=== PATIENT | male | born 1960 | race Caucasian/White ===

== ENCOUNTER 2018-04-30 13:08 | Emergency (ER) | payer OTHER ==
[2018-04-30 13:19] VITALS: BP 145/85
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
[2018-04-30] MEDS ORDERED: Ketorolac 30 MG/ML SDV IVPUSH ONE (15:40)
[2018-04-30] MEDS ORDERED: Ketorolac 60 MG/2 ML SDV IM ONE (15:47)
--- NOTE | 2018-04-30 15:56 | CR ---
Chest: Frontal view of the chest was obtained utilizing portable technique. Heart size and mediastinum are within normal limits for portable technique. Lungs are clear. Bony structures are grossly intact. Impression: 1. Nothing acute is seen on portable chest x-ray. Diagnostic code #1
[2018-04-30] MEDS ORDERED: Heparin Sodium 5,000 Units/ML Vial IVPUSH ONE (16:58)
[2018-04-30] MEDS ORDERED: Sodium Chloride 0.9% 10 ML Syringe FLUSH PRN (16:58)
[2018-04-30] MEDS ORDERED: Aspirin 81 MG Tab.Chew ONE (16:58)
[2018-04-30] MEDS ORDERED: Aspirin 81 MG Tab.Chew PO ONE (16:58)
[2018-04-30] MEDS ORDERED: Nitroglycerin 2% Oint 1 GM UD Packet TOP ONE (16:58)
[2018-04-30] MEDS ORDERED: Heparin Sodium/D5W 25,000 UNITS/500 ML BAG IV SCH (17:00)
[2018-04-30] MEDS ORDERED: Rosuvastatin 10 MG Tab PO ONE (17:18)
[2018-04-30] MEDS ORDERED: Metoprolol Tartrate 25 MG Tab PO ONE (17:18)
== END 2018-04-30 17:40 ==
LOC: JD.ED 13:08
DX: I24.9 Acute ischemic heart disease, unspecified (principal)
CPT/HCPCS: 36415; 71045; 80053; 83735; 84484; 85007; 85027; 93005; 96365; 96372; 99285; A9270; J1644; J1885; 93010

== ENCOUNTER 2019-05-21 20:16 | Emergency (ER) | payer OTHER ==
[2019-05-21 20:32] VITALS: BP 143/85; PULSE 80
[2019-05-21] MEDS ORDERED: Alum Hydrox/Mag Hydrox/Simeth 30 ML, Lidocaine 2% 15 ML PO STA ×2 (21:00)
--- NOTE | 2019-05-21 21:06 | EDM.PDOC ---
ED HPI GENERAL MEDICAL PROBLEM - General Chief Complaint: Chest Pain Stated Complaint: ABDOMINAL AND CHEST PRESSURE Time Seen by Provider: 05/21/19 20:44 Source of Information: Reports: Patient History Limitations: Reports: No Limitations - History of Present Illness INITIAL COMMENTS - FREE TEXT/NARRATIVE: Mr. Rowland is a very pleasant 59-year-old man with a past medical history significant for hypertension, dyslipidemia, and known coronary artery disease. On 04/30/2018, he presented to this ED with retrosternal chest pain after shoveling snow. His pain did not radiate. He had dyspnea, but no diaphoresis or nausea. His EKG was unremarkable. His initial troponin was within normal limits at 0.035, and his repeat troponin was still within normal limits, but up to 0.053, therefore there was a concern that the patient was suffering from a non-STEMI. He was started on a heparin drip and transferred to [facility] , where he was found to have a 95% blockage. He received a single coronary stent. He did not suffer an FL. He states that he has never undergone a cardiac stress test. The patient now presents to the ED after developing bilateral arm discomfort on 05/19/2019, after he was jacking a car up in order to tow it. The sensation then migrated to his left chest and left arm yesterday, Saturday, 05/19, then to his abdominal left upper quadrant this morning, where it remains. He states that the sensation is "gripping" in character. He states that it is a discomfort, not a pain. He states that it is made worse if he moves his head around. He states that his current symptoms are distinctly different than the angina that he experienced on 04/30/2018. The patient denies recent fever, chills, cough, dyspnea, palpitations, nausea, vomiting, constipation, diarrhea, abdominal pain, urinary symptoms, recent weight gain or weight loss, recent bloody bowel movements or black bowel movements, recent joint aches, headaches, or rashes. Here in the ED, the patient is found to be hemodynamically stable, afebrile, saturating 98% on room air. The patient's PCP is Dr. Noah Jade. His Jewellery Designer is Dr. Ang Morris. He did not receive an influenza vaccine this season, but agreed to receive one here today. Left Upper Abdomen Pain Score (Numeric/FACES): 3 - Related Data Allergies Allergy/AdvReac Type Severity Reaction Status Date / Time No Known Allergies Allergy Verified 05/21/19 20:32 Home Meds: Home Meds Aspirin 81 mg PO DAILY 05/21/19 [History] Azelastine HCl 2 inh NS DAILY 05/21/19 [History] Clopidogrel [Plavix] 75 mg PO DAILY 05/21/19 [History] Fluticasone Furoate [Arnuity Ellipta] 1 inh IH DAILY 05/21/19 [History] Metoprolol Succinate 25 mg PO DAILY 05/21/19 [History] Multivitamin [Gummi Bear Multivitamin] 1 each PO DAILY 05/21/19 [History] Nitroglycerin 0.4 mg SL ASDIRECTED 05/21/19 [History] atorvaSTATin [Lipitor] 40 mg PO DAILY 05/21/19 [History] Past Medical History Cardiovascular History: Reports: CAD, High Cholesterol, Hypertension Gastrointestinal History: Reports: Fatty Liver Genitourinary History: Reports: Renal Calculus - Past Surgical History HEENT Surgical History: Reports: Naso-Sinus Surgery (nasal polypectomy), Oral Surgery (wisdom teeth extraction) Cardiovascular Surgical History: Reports: Coronary Artery Stent (x 1, 04/30/2018) Social & Family History - Family History Family Medical History: Noncontributory - Tobacco Use Tobacco Use Within Last Twelve Months: Smokeless Tobacco (Chews 1 can/day) Years of Tobacco use: 2 Packs/Tins Daily: 1 Month/Year Tobacco Last Used: Quit 2009 - Caffeine Use Caffeine Use: Reports: Coffee - Alcohol Use Alcohol Use History: Yes Alcohol Use Frequency: Socially - Recreational Drug Use Recreational Drug Use: No - Living Situation & Occupation Living situation: Reports: , with Spouse 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 ED EXAM, GENERAL - Physical Exam Exam: See Below Exam Limited By: No Limitations General Appearance: Alert, WD/WN, No Apparent Distress Eye Exam: Bilateral Eye: EOMI, Normal Inspection Ears: Normal External Exam, Hearing Grossly Normal Nose: Normal Inspection Throat/Mouth: Normal Inspection, Normal Lips, Normal Voice, No Airway Compromise Head: Atraumatic, Normocephalic Neck: Normal Inspection, Full Range of Motion Respiratory/Chest: No Respiratory Distress, Lungs Clear, Normal Breath Sounds, No Accessory Muscle Use, Chest Non-Tender (including the left chest) Cardiovascular: Normal Peripheral Pulses, Regular Rate, Rhythm, No Edema, No Gallop, No JVD, No Murmur, No Rub Peripheral Pulses: 4+: Radial (L), Radial (R) GI/Abdominal: Normal Bowel Sounds, Soft, Non-Tender (including the LUQ), No Organomegaly, No Distention, No Abnormal Bruit, No Mass (Male) Exam: Deferred Rectal (Males) Exam: Deferred Back Exam: Normal Inspection, Full Range of Motion. No: CVA Tenderness (L), CVA Tenderness (R) Extremities: Normal Inspection, Normal Range of Motion, Non-Tender (includign the left shoulder), No Pedal Edema, Normal Capillary Refill Neurological: Alert, Oriented, Normal Cognition, No Motor/Sensory Deficits Psychiatric: Normal Affect Skin Exam: Warm, Dry, Intact, Normal Color, No Rash EKG INTERPRETATION EKG Date: 05/21/19 Time: 20:39 Rhythm: NSR Rate (Beats/Min): 71 [place]: Normal P-Wave: Present QRS: Normal ST-T: Normal QT: Normal Comparison: No Change (04/30/2018) Course - Vital Signs Last Recorded V/S: Last Vital Signs Temp 36.8 C 05/21/19 20:26 Pulse 80 05/21/19 20:26 Resp 16 05/21/19 20:26 BP 143/85 H 05/21/19 20:26 Pulse Ox 98 05/21/19 20:26 - Orders/Labs/Meds Orders: Active Orders 24 hr Category Date Time Status EKG Documentation Completion [RC] STAT Care 05/21/19 20:44 Active Influenza Vaccine Charge [RC] .DISCHARGE Care 05/21/19 21:00 Active Labs: Laboratory Tests 05/21/19 05/21/19 05/21/19 Range/Units 20:50 20:50 20:50 WBC 7.73 (4.23-9.07) K/mm3 RBC 4.71 (4.63-6.08) M/mm3 Hgb 13.4 L (13.7-17.5) gm/dl Hct 41.1 (40.1-51.0) % MCV 87.3 (79.0-92.2) fl MCH 28.5 (25.7-32.2) pg MCHC 32.6 (32.2-35.5) g/dl RDW Std Deviation 41.0 (35.1-43.9) fL Plt Count 294 (163-337) K/mm3 MPV 8.7 L (9.4-12.3) fl Neutrophils % (Manual) 61 H (40-60) % Band Neutrophils % 0 (0-10) % Lymphocytes % (Manual) 33 (20-40) % Atypical Lymphs % 0 % Monocytes % (Manual) 5 (2-10) % Eosinophils % (Manual) 1 (0.8-7.0) % Basophils % (Manual) 0 L (0.2-1.2) Platelet Estimate Adequate RBC Morph Comment Normal PT 10.5 (9.7-12.0) SECONDS INR 0.96 APTT 27 (22-31) SECONDS D-Dimer, Quantitative < 0.19 L (0.19-0.50) mg/L Sodium 141 (136-145) mEq/L Potassium 3.8 (3.5-5.1) mEq/L Chloride 105 (98-107) mEq/L Carbon Dioxide 27 (21-32) mEq/L Anion Gap 12.8 (5-15) BUN 24 H (7-18) mg/dL Creatinine 1.2 (0.7-1.3) mg/dL Est Cr Clr Drug Dosing 60.55 mL/min Estimated GFR (MDRD) > 60 (>60) mL/min BUN/Creatinine Ratio 20.0 H (14-18) Glucose 138 H (74-106) mg/dL Calcium 9.3 (8.5-10.1) mg/dL Total Bilirubin 0.4 (0.2-1.0) mg/dL AST 20 (15-37) U/L ALT 43 (16-63) U/L Alkaline Phosphatase 51 (46-116) U/L Troponin I < 0.017 (0.00-0.056) ng/mL NT-Pro-B Natriuret Pep (0-125) pg/mL Total Protein 7.0 (6.4-8.2) g/dl Albumin 4.1 (3.4-5.0) g/dl Globulin 2.9 gm/dL Albumin/Globulin Ratio 1.4 (1-2) 05/21/19 Range/Units 20:50 WBC (4.23-9.07) K/mm3 RBC (4.63-6.08) M/mm3 Hgb (13.7-17.5) gm/dl Hct (40.1-51.0) % MCV (79.0-92.2) fl MCH (25.7-32.2) pg MCHC (32.2-35.5) g/dl RDW Std Deviation (35.1-43.9) fL Plt Count (163-337) K/mm3 MPV (9.4-12.3) fl Neutrophils % (Manual) (40-60) % Band Neutrophils % (0-10) % Lymphocytes % (Manual) (20-40) % Atypical Lymphs % % Monocytes % (Manual) (2-10) % Eosinophils % (Manual) (0.8-7.0) % Basophils % (Manual) (0.2-1.2) Platelet Estimate RBC Morph Comment PT (9.7-12.0) SECONDS INR APTT (22-31) SECONDS D-Dimer, Quantitative (0.19-0.50) mg/L Sodium (136-145) mEq/L Potassium (3.5-5.1) mEq/L Chloride (98-107) mEq/L Carbon Dioxide (21-32) mEq/L Anion Gap (5-15) BUN (7-18) mg/dL Creatinine (0.7-1.3) mg/dL Est Cr Clr Drug Dosing mL/min Estimated GFR (MDRD) (>60) mL/min BUN/Creatinine Ratio (14-18) Glucose (74-106) mg/dL Calcium (8.5-10.1) mg/dL Total Bilirubin (0.2-1.0) mg/dL AST (15-37) U/L ALT (16-63) U/L Alkaline Phosphatase (46-116) U/L Troponin I (0.00-0.056) ng/mL NT-Pro-B Natriuret Pep 71 (0-125) pg/mL Total Protein (6.4-8.2) g/dl Albumin (3.4-5.0) g/dl Globulin gm/dL Albumin/Globulin Ratio (1-2) Meds: Medications Discontinued Medications Generic Name Dose Route Start Last Admin Trade Name Cecilia PRN Reason Stop Dose Admin Al Hydroxide/Mg Hydroxide 30 0 ml 05/21/19 21:00 05/21/19 21:05 ml/ Lidocaine HCl 15 ml PO 05/21/19 21:01 45 ml ONETIME STA Administration Famotidine 40 mg 05/21/19 21:53 05/21/19 22:10 Pepcid PO 05/21/19 21:54 40 mg ONETIME STA Administration Influenza Virus Vaccine 1 each 05/21/19 21:00 Pharmacy To Dose - Influenza Vaccine IM 05/21/19 21:01 ONETIME ONE Influenza Virus Vaccine 60 mcg 05/21/19 21:15 05/21/19 22:10 Fluzone Quad Syringe IM 05/21/19 21:16 60 mcg .ONCE ONE Administration - Re-Assessments/Exams Free Text/Narrative Re-Assessment/Exam: 05/21/19 21:01 There are certainly some features of the patient's presentation that are concerning for a cardiac etiology, however, other features are not, including that his presentation is quite different than when he was experiencing angina a year ago. His initial ECG is unremarkable. I have ordered blood work, and I have also ordered a GI cocktail, to see if that has any effect. 05/21/19 21:45 Two-view chest radiograph appears to be grossly normal. The cardiac silhouette is within normal limits. No pulmonary vascular congestion. No pleural effusions. No focal infiltrate. No pneumothorax. Formal read per the Radiologist pending. The patient's CBC is remarkable for a Hgb slightly depressed at 13.4 with a Hct normal at 41.1, and the remainder of his CBC being unremarkable. His CMP is remarkable for a BUN slightly elevated at 24 with a Cr normal at 1.2. His blood glucose is mildly elevated 138, with the remainder of his CMP being unremarkable. His troponin is undetectably low. His BNP is within normal limits at 71. His D-dimer is undetectably low. His coags are within normal limits. 05/21/19 21:53 Test results discussed with the patient. As above, tonight's work-up is unremarkable. He has not suffered any cardiac injury. He states that his left upper quadrant abdominal pain improved following a GI cocktail, indicating a gastroenterologic etiology. I will start him on oral famotidine here, and recommend that he start taking [id number] famotidine once or twice a day. Departure - Departure Time of Disposition: 21:56 Disposition: Home, Self-Care 01 Condition: Good Clinical Impression: GERD (gastroesophageal reflux disease) - Discharge Information *PRESCRIPTION DRUG MONITORING PROGRAM REVIEWED*: Not Applicable *COPY OF PRESCRIPTION DRUG MONITORING REPORT IN PATIENT LAVERN: Not Applicable Instructions: Gastroesophageal Reflux Disease, Adult, [id number] Referrals: Noah Jade MD [Primary Care Provider] - Ang Morris DO [Ordering Only Provider] - Forms: ED Department Discharge Additional Instructions: You were seen in the emergency room for pain in both of your arms that developed 2 days ago, then moved to your left chest and left arm, then to your left upper abdomen. Work-up in the ER included blood work, a chest x-ray, and an ECG, all of which were unremarkable. You have not suffered a heart attack. You do not have a blood clot in your lungs. You do not have a collapsed lung. You had improvement in your upper left abdominal pain following a GI cocktail, indicating that your pain may be gastroenterologic in etiology. You have therefore been started on the antacid medicine famotidine (Pepcid). Famotidine is available [id number]. We recommend that you take 1 tablet either once or twice a day. If you continue to have abdominal pain despite 1 tablet of famotidine twice a day, you may need to be switched to a stronger medicine, however, under those conditions, I would recommend that you undergo an EGD ( scope of the stomach). You would need to follow-up with your PCP, Dr. Noah Jade, in that regard. If any other problems, please do not hesitate to return to the ER. Sepsis Event Note - Evaluation Sepsis Screening Result: No Definite Risk - Focused Exam Vital Signs: Vital Signs Temp Pulse Resp BP Pulse Ox 05/21/19 20:26 36.8 C 80 16 143/85 H 98 Date Exam was Performed: 05/22/19 Time Exam was Performed: 01:52 - My Orders Last 24 Hours: My Active Orders 05/21/19 20:44 EKG Documentation Completion [RC] STAT 05/21/19 21:00 Influenza Vaccine Charge [RC] .DISCHARGE - Assessment/Plan Last 24 Hours: My Active Orders 05/21/19 20:44 EKG Documentation Completion [RC] STAT 05/21/19 21:00 Influenza Vaccine Charge [RC] .DISCHARGE
[2019-05-21] MEDS ORDERED: FLU Vacc QS2019-20(6MOS+)/PF 60 MCG/0.5 ML SYRINGE IM ONE (21:15)
--- NOTE | 2019-05-21 21:25 | CR ---
Chest: PA and lateral views of the chest were obtained. Comparison: Prior chest x-ray of 04/30/18. Heart is mildly enlarged. Tortuous thoracic aorta is seen. Lungs are clear with no acute parenchymal change. Minimal deformity to several left lower ribs compatible with old healed fractures. Minimal degenerative change is noted within the spine. Impression: 1. Findings as described above. 2. Nothing acute is appreciated. Diagnostic code #2 Study was dictated in MDT
[2019-05-21] MEDS ORDERED: Famotidine 20 MG Tab PO STA (21:53)
== END 2019-05-21 22:20 | disposition home or self-care (01) ==
LOC: JD.ED 20:16
DX: K21.9 Gastro-esophageal reflux disease without esophagitis (principal); I10 Essential (primary) hypertension; Z79.899 Other long term (current) drug therapy; Z79.82 Long term (current) use of aspirin
CPT/HCPCS: 36415; 71046; 80053; 83880; 84484; 85007; 85027; 85379; 85610; 85730; 90471; 90686; 93005; 99285; A9270; 93010; 99283; G0008

== ENCOUNTER 2019-09-30 19:17 | Emergency (ER) | payer OTHER ==
[2019-09-30] MEDS ORDERED: Ondansetron 4 MG/2 ML SDV IVPUSH ONE (20:13)
[2019-09-30] MEDS ORDERED: Tamsulosin 0.4 MG Cap.ER PO ONE (20:13)
[2019-09-30] MEDS ORDERED: Sodium Chloride 0.9% 1,000 ML IV SCH (20:15)
--- NOTE | 2019-09-30 20:16 | EDM.PDOC ---
ED HPI GENERAL MEDICAL PROBLEM - General Chief Complaint: Flank Pain Stated Complaint: FLANK PAIN Time Seen by Provider: 09/30/19 20:00 Source of Information: Reports: Patient, Family () History Limitations: Reports: No Limitations - History of Present Illness INITIAL COMMENTS - FREE TEXT/NARRATIVE: Mr. Rowland is a very pleasant 59-year-old gentleman with a past medical history significant for passing a kidney stone in 2004, who now presents the ED stating that he developed sudden onset sharp left flank pain that radiated to his left lower quadrant around 18:00 this evening. He states that the pain has been coming and going, and that currently he is asymptomatic, and that he has not identified any modifiers. He did not take any ifni-sql-[id number] or home remedies prior to coming to the ED. He states that prior to the onset of the symptoms, he had "sort of a stomachache" today. When he was experiencing pain, he had some nausea, but no vomiting. He states that his symptoms are similar to when he had the stone in 2004. Here in the ED, the patient's initial BP is found to be elevated at 179/90, otherwise, he is hemodynamically stable, afebrile, saturating 98% on room air. Other than today's left flank and left lower quadrant abdominal pain, and nausea, the patient denies having a recent fever, chills, sore throat, ear pain, nasal or sinus congestion, cough, dyspnea, chest pain, palpitations, vomiting, constipation, diarrhea, urinary symptoms, recent weight gain or weight loss, recent bloody bowel movements or black bowel movements, recent joint aches, headaches, or rashes. The patient's PCP is Dr. Noah Jade. His Commercial Real Estate Attorney is Dr. Ang Morris. Left Flank Pain Score (Numeric/FACES): 9 - Related Data Allergies Allergy/AdvReac Type Severity Reaction Status Date / Time No Known Allergies Allergy Verified 09/30/19 20:01 Home Meds: Home Meds Aspirin 81 mg PO DAILY 05/21/19 [History] Clopidogrel [Plavix] 75 mg PO DAILY 05/21/19 [History] Metoprolol Succinate 25 mg PO DAILY 05/21/19 [History] Nitroglycerin 0.4 mg SL ASDIRECTED 05/21/19 [History] atorvaSTATin [Lipitor] 40 mg PO DAILY 05/21/19 [History] Acetaminophen/HYDROcodone [[place] 325-5 MG] 1 - 2 tab PO Q6H PRN #30 tablet 09/30/19 [Rx] Fluticasone Propionate [Flonase Allergy Relief] 1 spray NS DAILY 09/30/19 [History] Ondansetron [Zofran ODT] 1 tab PO Q6H PRN #10 tab.dis 09/30/19 [Rx] Tamsulosin HCl [Flomax] 1 cap PO QPM PRN #10 cap.er.24h 09/30/19 [Rx] Past Medical History Cardiovascular History: Reports: CAD, High Cholesterol, Hypertension Gastrointestinal History: Reports: Fatty Liver Genitourinary History: Reports: Renal Calculus - Past Surgical History HEENT Surgical History: Reports: Naso-Sinus Surgery (nasal polypectomy), Oral Surgery (wisdom teeth extraction) Cardiovascular Surgical History: Reports: Coronary Artery Stent (x 1, 04/30/2018) Social & Family History - Family History Family Medical History: Noncontributory - Tobacco Use Smoking Status *Q: Former Smoker Tobacco Use Within Last Twelve Months: Smokeless Tobacco (Quit chewing 1 can/day) Years of Tobacco use: 2 Packs/Tins Daily: 2 Month/Year Tobacco Last Used: Quit 2009 - Caffeine Use Caffeine Use: Reports: Coffee, Soda - Alcohol Use Alcohol Use History: Yes Alcohol Use Frequency: Socially - Recreational Drug Use Recreational Drug Use: No - Living Situation & Occupation Living situation: Reports: , with Spouse 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 ED EXAM, RENAL/ - Physical Exam Exam: See Below Exam Limited By: No Limitations General Appearance: Alert, WD/WN, No Apparent Distress Eye Exam: Bilateral Eye: EOMI, Normal Inspection Ears: Normal External Exam, Hearing Grossly Normal Nose: Normal Inspection Throat/Mouth: Normal Inspection, Normal Lips, Normal Voice, No Airway Compromise Head: Atraumatic, Normocephalic Neck: Normal Inspection, Full Range of Motion Respiratory/Chest: No Respiratory Distress, Lungs Clear, Normal Breath Sounds, No Accessory Muscle Use Cardiovascular: Normal Peripheral Pulses, Regular Rate, Rhythm, No Edema, No Gallop, No JVD, No Murmur, No Rub GI/Abdominal: Normal Bowel Sounds, Soft, Non-Tender (including the LLQ), No Organomegaly, No Distention, No Abnormal Bruit, No Mass (Male) Exam: Deferred Rectal (Males) Exam: Deferred Back Exam: Normal Inspection, Full Range of Motion, CVA Tenderness (L) (mild). No: CVA Tenderness (R) Extremities: Normal Inspection, Normal Range of Motion, No Pedal Edema, Normal Capillary Refill Neurological: Alert, Oriented, Normal Cognition, No Motor/Sensory Deficits Psychiatric: Normal Affect Skin Exam: Warm, Dry, Intact, Normal Color, No Rash Course - Vital Signs Last Recorded V/S: Last Vital Signs Temp 36.4 C 09/30/19 19:58 Pulse 92 09/30/19 22:18 Resp 17 09/30/19 22:18 BP 149/87 H 09/30/19 22:18 Pulse Ox 98 09/30/19 22:18 - Orders/Labs/Meds Orders: Active Orders 24 hr Category Date Time Status Strain Urine [RC] ASDIRECTED Care 09/30/19 21:23 Active Abdomen Pelvis wo Cont [CT] Stat Exams 09/30/19 20:12 Taken CORONAVIRUS COVID-19 PCR PHL Routine Lab 09/30/19 21:38 Received Sodium Chloride 0.9% [Normal Saline] 1,000 ml Med 09/30/19 20:15 Active IV ASDIRECTED Medication Orders Sodium Chloride (Normal Saline) 1,000 mls @ 150 mls/hr IV ASDIRECTED BALJEET Last Admin: 09/30/19 20:30 Dose: 150 mls/hr Documented by: JAX Labs: Laboratory Tests 09/30/19 Range/Units 20:27 Urine Color Yellow (Yellow) Urine Appearance Clear (Clear) Urine pH 5.5 (5.0-8.0) Ur Specific [place] > or = 1.030 (1.005-1.030) Urine Protein Negative (Negative) Urine Glucose (UA) Negative (Negative) Urine Ketones Negative (Negative) Urine Occult Blood 3+ H (Negative) Urine Nitrite Negative (Negative) Urine Bilirubin Negative (Negative) Urine Urobilinogen 0.2 (0.2-1.0) Ur Leukocyte Esterase Negative (Negative) Urine RBC 50-75 H (0-5) /hpf Urine WBC 0-5 (0-5) /hpf Ur Squamous Epith Cells 0-5 (0-5) /hpf Urine Bacteria Rare (FEW) /hpf Urine Mucus Few (FEW) /hpf Meds: Medications Generic Name Dose Route Start Last Admin Trade Name Cecilia PRN Reason Stop Dose Admin Sodium Chloride 1,000 mls @ 150 mls/hr 09/30/19 20:15 09/30/19 20:30 Normal Saline IV 150 mls/hr ASDIRECTED BALJEET Administration Discontinued Medications Generic Name Dose Route Start Last Admin Trade Name Cecilia PRN Reason Stop Dose Admin Hydromorphone HCl 0.5 mg 09/30/19 20:23 09/30/19 20:31 Dilaudid IVPUSH 09/30/19 20:24 0.5 mg ONETIME ONE Administration Hydromorphone HCl 0.5 mg 09/30/19 21:22 09/30/19 21:29 Dilaudid IVPUSH 09/30/19 21:23 0.5 mg ONETIME ONE Administration Ketorolac Tromethamine 30 mg 09/30/19 20:24 09/30/19 20:30 Toradol IVPUSH 09/30/19 20:25 30 mg ONETIME STA Administration Ondansetron HCl 4 mg 09/30/19 20:13 09/30/19 20:28 Zofran IVPUSH 09/30/19 20:14 4 mg ONETIME ONE Administration Tamsulosin HCl 0.4 mg 09/30/19 20:13 09/30/19 20:30 Flomax PO 09/30/19 20:14 0.4 mg ONETIME ONE Administration - Re-Assessments/Exams Free Text/Narrative Re-Assessment/Exam: 09/30/19 20:14 As above, the patient developed sudden onset sharp left flank pain that radiated to his left lower quadrant about 2 hours ago. He has had some nausea, but no other associated symptoms, and at present, he is asymptomatic. He has no tenderness to palpation of his abdomen, although he has mild left CVA tenderness. His symptoms are similar to when he had a kidney stone in 2004, and I suspect that that is what is going on again today, although it is also possible that he passed the stone already. For today's purposes, I have ordered a urinalysis and a CT scan of the abdomen and pelvis without contrast. In the meantime, the patient will be given oral Flomax, IV Zofran, and IV fluid. I will order pain medication if his pain returns. 09/30/19 20:26 Notified by Abdiel THOMSON that the patient's pain is returning. I have therefore ordered Dilaudid 0.5 mg IVP and Toradol 30 mg IVP. Also notified that the patient is requesting to be tested for the SARS-CoV-2 virus. I have ordered a state test. 09/30/19 21:24 The patient's urinalysis is remarkable for 3+ occult blood with 50-70 RBCs, and is otherwise unremarkable. 09/30/19 21:26 CT of the abdomen and pelvis without contrast is read by Lorin as: 1. Mid left-sided obstructive uropathy 2. Additional bilateral nephrolithiasis 09/30/19 21:50 Test results discussed with the patient (his is not currently present). As above, the patient has a 2 to 3 mm stone at the left UVJ. He tells me that he is not supposed to take ibuprofen, therefore I will recommend that he take [id number] Tylenol as needed, and I will also prescribe [place], noting that he needs to limit his acetaminophen intake to 4 g/day. I will prescribe Flomax and Zofran. He will be given a urine strainer prior to discharge, and I will refer him to Urology, in the event that he does not pass the stone within about a week. 09/30/19 22:51 Notified that the patient requested 1 or 2 tablets of [place] to go home with. I have written a prescription for 4 tablets of [place] via [employer]. Departure - Departure Time of Disposition: 21:51 Disposition: Home, Self-Care 01 Condition: Good Clinical Impression: Ureterolithiasis - Discharge Information *PRESCRIPTION DRUG MONITORING PROGRAM REVIEWED*: Not Applicable *COPY OF PRESCRIPTION DRUG MONITORING REPORT IN PATIENT [place]AVERN: Not Applicable Prescriptions: Tamsulosin HCl [Flomax] 1 cap PO QPM PRN #10 cap.er.24h PRN Reason: Pain Acetaminophen/HYDROcodone [[place] 325-5 MG] 1 - 2 tab PO Q6H PRN #30 tablet PRN Reason: Pain (Severe 7-10) Ondansetron [Zofran ODT] 1 tab PO Q6H PRN #10 tab.dis PRN Reason: Nausea/Vomiting Instructions: Kidney Stones, [id number] Referrals: Noah Jade MD [Primary Care Provider] - Ang Morris DO [Ordering Only Provider] - Camden Reilly MD [Ordering Only Provider] - Forms: ED Department Discharge Additional Instructions: You were seen in the emergency room after developing sudden onset left flank pain that radiated around to your lower left abdomen. Work-up in the ER included a urinalysis and a CT scan of your abdomen and pelvis without contrast. Your urinalysis showed blood, only, with no sign of an infection. Your CT scan found a 2 to 3 mm stone stuck at the junction between your ureter and bladder. Based on the size and location of the stone, you will almost certainly pass it on your own. Stay adequately hydrated. Strain all of your urine. If you capture the stone, take it to your doctor for analysis. Take 1 tablet of the anti-spasm medicine Flomax every evening, starting tomorrow evening, 10/01/2019, as needed for discomfort. We recommend you take [id number] Tylenol [id number], as needed for discomfort. In addition to Tylenol, you may also take the prescription narcotic [place], 1 to 2 tablets up to every 6 hours, as needed for discomfort not relieved by Tylenol, however, it is very important that you not exceed 4 g of acetaminophen intake per 24 hours. If you take [place], do not drive or operate heavy machinery for 12 hours afterwards. [place] may cause constipation, so consider taking a stool softener. You may dissolve 1 tablet of the anti-nausea medicine Zofran on your tongue up to every 8 hours, as needed for nausea/vomiting. If you are still having flank pain after 1 week, please follow-up with the Urologist Dr. Camden Reilly, in [place]. Be sure that the executive receptionist understands that you are following up from the ER. If any other problems, please do not hesitate to return to the ER. Sepsis Event Note (ED) - Evaluation Sepsis Screening Result: No Definite Risk - Focused Exam Vital Signs: Vital Signs Temp Pulse Resp BP Pulse Ox 09/30/19 22:18 92 17 149/87 H 98 09/30/19 19:58 36.4 C 71 16 179/90 H 98 - My Orders Last 24 Hours: My Active Orders 09/30/19 20:12 Abdomen Pelvis wo Cont [CT] Stat 09/30/19 20:15 Sodium Chloride 0.9% [Normal Saline] 1,000 ml IV ASDIRECTED 09/30/19 21:23 Strain Urine [RC] ASDIRECTED 09/30/19 21:38 CORONAVIRUS COVID-19 PCR PHL Routine - Assessment/Plan Last 24 Hours: My Active Orders 09/30/19 20:12 Abdomen Pelvis wo Cont [CT] Stat 09/30/19 20:15 Sodium Chloride 0.9% [Normal Saline] 1,000 ml IV ASDIRECTED 09/30/19 21:23 Strain Urine [RC] ASDIRECTED 09/30/19 21:38 CORONAVIRUS COVID-19 PCR PHL Routine
[2019-09-30] MEDS ORDERED: HYDROmorphone 0.5 MG/0.5 ML Syringe IVPUSH ONE ×2 (20:23→21:22)
[2019-09-30] MEDS ORDERED: Ketorolac 30 MG/ML SDV IVPUSH STA (20:24)
[2019-09-30 22:24] VITALS: BP 149/87; PULSE 92
--- NOTE | 2019-10-01 08:59 | CT ---
CT abdomen and pelvis Technique: Multiple axial sections were obtained from above the dome of the diaphragm inferiorly through the pubic symphysis. Intravenous contrast and oral contrast has not been given. Study was performed as a ureteral stone protocol. Comparison: No prior abdominal imaging is available. Findings: Left ureter is mildly dilated. This finding is caused by an approximate 2 mm stone located within the distal left ureter close to the UVJ. No other abnormal calcifications are seen along the course of the ureters. Multiple nonobstructing calculi are seen within both kidneys. Largest stone measures about 6 mm. Very slight atelectasis seen posteriorly within both lung bases. Noncontrast appearance of the liver shows no focal parenchymal abnormality. Spleen appears within normal limits. Adrenal glands contain no nodule. Pancreas shows no discrete abnormality. Gallbladder contains no calcified gallstones. Aorta shows atherosclerotic calcification. Aorta is slightly ectatic. Mid aorta is borderline aneurysmal at 2.5 cm. No retroperitoneal adenopathy or mesenteric abnormalities are seen. No pelvic mass or adenopathy is identified. Appendix is visualized and appears normal in size. Bone window settings were reviewed which shows degenerative change within the spine most severe at L3-4 with mild spondylolisthesis and bilateral spondylolytic defects. Disc space narrowing and vacuum phenomenon is also noted at this level. There is a disc space at the lumbosacral junction labeled dose S1-2 as a presumed transitional segment. Impression: 1. Numerous nonobstructing calculi within both kidneys. 2. Slightly enlarged left-sided ureter caused by a 2 mm obstructing stone located within the distal left ureter close to the UVJ. 3. Other findings which are nonacute as described above. Diagnostic code #3 This report was dictated in MDT I agree with preliminary report from [facility], finalized on 09/30/19, 10:22 PM Central Daylight Time
== END 2019-09-30 22:45 | disposition home or self-care (01) ==
LOC: JD.ED 19:17
DX: N20.2 Calculus of kidney with calculus of ureter (principal); I10 Essential (primary) hypertension; I25.10 Atherosclerotic heart disease of native coronary artery without angina pectoris; E78.00 Pure hypercholesterolemia, unspecified; Z95.5 Presence of coronary angioplasty implant and graft; Z79.82 Long term (current) use of aspirin; Z79.02 Long term (current) use of antithrombotics/antiplatelets; Z79.899 Other long term (current) drug therapy; Z87.891 Personal history of nicotine dependence; Z20.828 Contact with and (suspected) exposure to other viral communicable diseases
CPT/HCPCS: 74176; 81001; 87635; 96374; 96375; 96376; 99284; A9270; J1170; J1885; J2405; J7030; U0002

== ENCOUNTER 2021-09-12 23:34 | Emergency (ER) | payer OTHER ==
[2021-09-12 23:54] VITALS: BP 140/82; PULSE 89
[2021-09-13] MEDS: Morphine 2 MG/ML SYRINGE IVPUSH ONE ×4 (00:41→01:57)
[2021-09-13] MEDS: Orphenadrine 100 MG Tab.ER PO SCH (02:33)
[2021-09-13] MEDS ORDERED: Orphenadrine 100 MG Tab.ER PO SCH (21:00)
== END 2021-09-13 03:52 | disposition home or self-care (01) ==
LOC: JD.ED 23:34
DX: S39.012A Strain of muscle, fascia and tendon of lower back, initial encounter (principal); I25.10 Atherosclerotic heart disease of native coronary artery without angina pectoris; E78.00 Pure hypercholesterolemia, unspecified; I10 Essential (primary) hypertension; Z86.16 Personal history of COVID-19; Z79.82 Long term (current) use of aspirin; Z79.02 Long term (current) use of antithrombotics/antiplatelets; Z79.899 Other long term (current) drug therapy
CPT/HCPCS: 36415; 74176; 80053; 81003; 85025; 96374; 96376; 99284; A9270; J2270